=== PATIENT | female | born 1995 | race Caucasian/White ===

== ENCOUNTER 2018-10-29 20:00 | Inpatient (IN) | payer MEDICAID ==
[~2018-10-29] VITALS: Ht 157.5 cm; Wt 75.6 kg
[~2018-10-29 20:00] MED LIST: CEPH250C; FERR-31; NIFE10CA; PREN1TAB49
[2018-10-29 21:49] VITALS: BP 131/80; PULSE 84; RESP 18
[2018-10-29] MEDS ORDERED: ACET500C5 PO (21:53)
[2018-10-29] MEDS ORDERED: LACTATED RINGER'S 1,000 ML IV PRN (21:54)
[2018-10-29] MEDS ORDERED: MISOPROSTOL 200 MCG TAB PR PRN (22:00)
[2018-10-29] MEDS ORDERED: BUTORPHANOL 2 MG INJ IV PRN (22:00)
[2018-10-29] MEDS ORDERED: METHYLERGONOVINE 0.2 MG INJ IM PRN (22:00)
[2018-10-29] MEDS ORDERED: OXYTOCIN 30 UNITS/LR 500 ML IV SCH ×2 (22:00)
[2018-10-29] MEDS ORDERED: LIDOCAINE 1% (MPF) 30 ML INJ INJ PRN (22:00)
[2018-10-29] MEDS ORDERED: CARBOPROST 250 MCG INJ IM PRN (22:00)
[2018-10-29] MEDS ORDERED: IBUPROFEN 600 MG TAB PO PRN (22:00)
[2018-10-29] MEDS ORDERED: OXYTOCIN 30 UNITS/LR 500 ML IV PRN (22:00)
[2018-10-29] MEDS ORDERED: BUTORPHANOL 1 MG INJ IV PRN (22:00)
[2018-10-29 22:09] VITALS: Ht 157.5 cm; Wt 75.6 kg
[2018-10-29] MEDS: LACTATED RINGER'S 1,000 ML IV SCH (23:31)
[2018-10-30] MEDS: MISOPROSTOL 50 MCG CAPSULE PO PRN ×2 (00:11→04:20)
[2018-10-30] MEDS ORDERED: ACETAMINOPHEN 500 MG TAB PO PRN (03:00)
[2018-10-30] MEDS: LACTATED RINGER'S 1,000 ML IV SCH ×4 (07:20→23:46)
[2018-10-30] MEDS ORDERED: OXYTOCIN 30 UNITS/LR 500 ML IV SCH (09:00)
--- NOTE | 2018-10-30 21:06 | HP ---
Date/Time of Note Date/Time of Note DATE: 10/30/18 TIME: 21:01 OB - History Hx of Present Free Text/Dictation 23 YO with IUP at 38 weeks with EDC 11/13 2018 who reported to L&D for IOL due to IUGR. Care: Good Care Ultrasounds: Normal mid trimester US Obstetrical Complications: Growth Restriction Medical Complications: None Past Family/Social History * Past Medical, Surgical, Family and Obstetric Histories reviewed from chart. OB Admission Exam Vital Signs Vital Signs Vital Signs Date Temp Pulse Resp B/P (MAP) Pulse Ox O2 O2 Flow FiO2 Time Delivery Rate 10/29/18 98.9 84 18 131/80 Room Air 21:49 (97) Physical Exam HEENT: WNL Heart: Rhythm Normal Lungs: Clear, Equal Abdomen: WNL Extremities: Normal Reflexes: Normal Cervical Dilatation: 2cm Last 72 hours Lab Results CBC & BMP 10/29/18 22:36 OB Assessment/Plan Reason for admission: induction of labor Induction Method: per Pitocin Protocol JEFERSON CAST MD Oct 30, 2018 21:06
--- NOTE | 2018-10-30 22:43 | PREAC ---
Date/Time of Note Date/Time of Note DATE: 10/30/18 TIME: 22:42 Anesthesia Eval and Record Evaluation Time Pre-Procedure Interview DATE: 10/30/18 TIME: 22:42 Age 23 Sex female NPO: 8 hrs Preoperative diagnosis labor pain Planned procedure epidural Past Medical History Past Medical History: None Surgery & Anesthesia Issues No known issue Meds Anticoagulation: No Beta Tamir within 24 hr: No Reason Beta Tamir not given: Pt. not on B-Tamir Reported Medications Acetaminophen* (Tylophen*) 500 Mg Capsule, 500 MG PO Q6H PRN for PAIN AND/OR INFLAMMATION, TAB 10/29/18 Ferrous Sulfate (Iron Supplement) 1 Tab Tablet 06/23/10 Vits W-Ca,Fe,Fa(<1MG) () 1 Tab Tablet 06/23/10 Discontinued Reported Medications Nifedipine* (Procardia*) 10 Mg Capsule 06/23/10 Cephalexin* (Cephalexin*) 250 Mg Capsule 06/23/10 Current Medications Lactated Ringer's 1,000 ml @ 125 mls/hr Q8H IV Last administered on 10/30/18at 22:11; Admin Dose 125 MLS/HR; Start 10/29/18 at 21:54 Butorphanol Tartrate (Stadol) 1 mg Q2H PRN IV .PAIN; Start 10/29/18 at 22:00 Butorphanol Tartrate (Stadol) 2 mg Q2H PRN IV .PAIN; Start 10/29/18 at 22:00 Lidocaine (Xylocaine 1% (Mpf)) 30 ml ONCE PRN INJ .EPISIOTOMY; Start 10/29/18 at 22:00 Oxytocin/Lactated Ringer's 500 ml @ 500 mls/hr ONCE POST IV ; Start 10/29/18 at 22:00 Oxytocin/Lactated Ringer's 500 ml @ 125 mls/hr POST IV ; Start 10/29/18 at 22:00 Ibuprofen (Motrin) 600 mg ONCE PRN PO .PAIN 1-5; Start 10/29/18 at 22:00 Lactated Ringer's 1,000 ml @ 2,000 mls/hr Q30M PRN IV .ANESTHESIA; Start 10/29/18 at 21:54 Oxytocin/Lactated Ringer's 500 ml @ 0 mls/hr ONCE PRN IV .VAGINAL BLEEDING; Start 10/29/18 at 22:00 Methylergonovine Maleate (Methergine) 0.2 mg ONCE PRN IM .VAGINAL BLEEDING; Start 10/29/18 at 22:00 Carboprost Tromethamine (Hemabate) 250 mcg ONCE PRN IM .VAGINAL BLEEDING; Start 10/29/18 at 22:00 Misoprostol (Cytotec) 1,000 mcg ONCE PRN ID .VAGINAL BLEEDING; Start 10/29/18 at 22:00 Misoprostol (Cytotec 50 Mcg Capsule) 50 mcg Q4H PRN PO LABOR INDUCTION Last administered on 10/30/18at 04:20; Admin Dose 50 MCG; Start 10/29/18 at 23:30 Acetaminophen (Tylenol Tab) 500 mg Q4H PRN PO MILD PAIN(1-3)OR ELEVATED TEMP Last administered on 10/30/18at 03:01; Admin Dose 500 MG; Start 10/30/18 at 03:00 Oxytocin/Lactated Ringer's 500 ml @ 0 mls/hr Q0M IV Last administered on at 09:26; Admin Dose 1 MLS/HR; Start 10/30/18 at 09:00 Meds reviewed: Yes Allergies Coded Allergies: No Known Allergy (Verified , 10/29/18) Allergies Reviewed: Yes Labs/Studies Labs Reviewed: Reviewed by anesthesiologist Result Diagram: 10/29/182235 test: Positive Studies: ECG (n/a), CXR (n/a) Pre-procedure Exam Last vitals Vital Signs Date Temp Pulse Resp B/P (MAP) Pulse Ox O2 O2 Flow FiO2 Time Delivery Rate 10/29/18 98.9 84 18 131/80 Room Air 21:49 (97) Airway: Adequate mouth opening Mallampati: Mallampati I Teeth: Normal Lung: Normal Heart: Normal ASA Physical Status ASA physical status: 2 Emergency: None Planned Anesthetic Neuraxial: Epidural Pre-operative Attestations Prior to commencing anesthesia and surgery, the patient was re-evaluated, there was verification of: *The patient's identity *The results of appropriate recent lab work and preoperative vital signs *The above evaluation not changing prior to induction *Anesthetic plan, risk benefits, alternative and complications discussed with patient/family; questions answered; patient/family understands, accepts and wishes to proceed. AMBERLY SMITH MD Oct 30, 2018 22:43
[2018-10-30] MEDS ORDERED: FENTAnyl 2MCG/ML-ROPIV 0.2% 100 ML BAG EPI SCH (23:00)
[2018-10-30] MEDS ORDERED: NALOXONE (0.4 MG/ML) INJ IV PRN (23:00)
--- NOTE | 2018-10-30 23:32 | PAC ---
Date/Time of Note Date/Time of Note DATE: 10/30/18 TIME: 23:32 Post-Anesthesia Notes Post-Anesthesia Note Last documented vital signs Vital Signs Date Temp Pulse Resp B/P (MAP) Pulse Ox O2 O2 Flow FiO2 Time Delivery Rate 10/29/18 98.9 84 18 131/80 Room Air 23:49 (97) Activity: WNL Respiratory function: WNL Cardiovascular function: WNL Mental status: Baseline Pain reasonably controlled: Yes Hydration appropriate: Yes Nausea/Vomiting absent: No AMBERLY SMITH MD Oct 30, 2018 23:32
[2018-10-31] MEDS ORDERED: MINERAL OIL LIGHT 10 ML VIAL TOP ONE (02:30)
--- NOTE | 2018-10-31 04:07 | LDN ---
Date/Time of Note Date/Time of Note DATE: 10/31/18 TIME: 03:59 Delivery Summary at 37w6d induced for IUGR variable deceleration at complete,ARM clear fluid after portwine colored bleeding OP manual rotation to STEVE placenta complete andintact with marginal abruptio (very small area) of normal male with loose x1 nuchal cord with 8/9 5lb8oz Weeks of Gestation 38w1d Placenta Delivered: Spontaneously, Intact & Complete Meconium: none Episiotomy: No Perineal laceration: 0 Anesthesia type: Epidural Estimated blood loss: 100 Sponge & Needle done & correct: Yes All needle counts correct: Yes Any foreign bodies felt in the: No Infant Delivery Information Sex Sex: male Apgars 1 Minute: 8 5 Minute: 9 Suctioning Nose & mouth suctioned at chloé: Yes Delee suction performed: Yes Umbilical Cord Umbilical cord with: 3 Vessels Cord presentations: nuchal cord Nuchal cord present X: 1 Cord Blood was obtained: Yes Mother & Baby Disposition Disposition Mom & Baby to Maternity; Good: Yes Mom transferred to: Other Baby to NICU: No () TOÑO BARDALES MD Oct 31, 2018 04:07
[2018-10-31 06:00] VITALS: BP 118/79; PULSE 70; RESP 18
[2018-10-31] MEDS ORDERED: METHYLERGONOVINE 0.2 MG INJ IM PRN (06:00)
[2018-10-31] MEDS ORDERED: CARBOPROST 250 MCG INJ IM PRN (06:00)
[2018-10-31] MEDS ORDERED: WITCH HAZEL/GLYCERIN PAD PR PRN (06:00)
[2018-10-31] MEDS ORDERED: MISOPROSTOL 200 MCG TAB PR PRN (06:00)
[2018-10-31] MEDS ORDERED: OXYTOCIN 30 UNITS/LR 500 ML IV PRN (06:00)
[2018-10-31] MEDS ORDERED: OXYCODONE/ASPIRIN (4.88/325) TAB PO PRN ×2 (06:00)
[2018-10-31] MEDS ORDERED: BENZOCAINE 20% 56 ML SPRAY TOP PRN (06:00)
[2018-10-31] MEDS ORDERED: ZOLPIDEM 5 MG TAB PO PRN (06:00)
[2018-10-31] MEDS ORDERED: LANOLIN HPA 1 PKT TOP PRN (06:00)
[2018-10-31] MEDS: IBUPROFEN 600 MG TAB PO SCH ×4 (06:09→23:34)
[2018-10-31 07:40] VITALS: BP 120/79; PULSE 77; RESP 18
[2018-10-31] MEDS: SENNA/DOCUSATE NA (8.6MG/50MG) TAB PO SCH ×2 (11:12→21:11)
[2018-10-31 11:55] VITALS: BP 121/68; PULSE 74; RESP 18
[2018-10-31 12:00] VITALS: BP 121/68; PULSE 74; RESP 16
[2018-10-31 16:00] VITALS: BP 112/71; PULSE 75; RESP 20
[2018-10-31 20:00] VITALS: BP 117/78; PULSE 77; RESP 18
[2018-11-01] VITALS: BP 105/77; PULSE 72; RESP 18
[2018-11-01 04:04] VITALS: BP 118/79; PULSE 74; RESP 18
[2018-11-01] MEDS: IBUPROFEN 600 MG TAB PO SCH ×4 (05:42→23:58)
[2018-11-01 08:15] VITALS: BP 121/82; PULSE 88; RESP 18
[2018-11-01] MEDS: SENNA/DOCUSATE NA (8.6MG/50MG) TAB PO SCH ×2 (09:50→23:58)
[2018-11-01 16:00] VITALS: BP 117/83; PULSE 83; RESP 20
[2018-11-01 20:30] VITALS: BP 131/78; PULSE 106; RESP 18
[2018-11-02 01:00] VITALS: BP 120/61; PULSE 85; RESP 18
[2018-11-02 04:00] VITALS: BP 121/80; PULSE 64; RESP 19
[2018-11-02] MEDS: IBUPROFEN 600 MG TAB PO SCH ×2 (05:41→12:41)
[2018-11-02 08:20] VITALS: BP 119/83; PULSE 74; RESP 18
[2018-11-02] MEDS ORDERED: DIPHTH/TET/ACEL PERTUSS (ADULT) 0.5 ML VIAL IM* ONE (09:00)
[2018-11-02] MEDS: SENNA/DOCUSATE NA (8.6MG/50MG) TAB PO SCH (09:11)
--- NOTE | 2018-11-02 09:34 | PD.PPDC ---
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
--- NOTE | 2018-11-02 09:36 | DS ---
Date/Time of Note Date/Time of Note DATE: 11/02/18 TIME: 09:35 Obstetrical Discharge Record Final Diagnosis Final Diagnosis: Term delivered Vaginal Delivery Obstetrical Delivery: Spontaneous Complications Augmentation: Yes Induction: Yes Condition on Discharge Physical Assessment Last Vitals: T=98.9 BP 121/80 Voiding: Yes Bowel Movement: Yes Breast: Filling Fundus: Firm Calf Tenderness: No Patient Condition: Good ARACELIS FLANNERY MD Nov 02, 2018 09:36
--- NOTE | 2018-11-02 19:29 | QN ---
Documentation Comment This note is a late entry for 11/01/2018 day #1 Status post Patient stable and afebrile Tolerating regular diet and ambulating and voiding without any difficulties Vital signs stable VS - Last 72 Hours, by Label Date Temp Pulse Resp B/P (MAP) Pulse Ox O2 O2 Flow FiO2 Time Delivery Rate 11/02/18 97.5 74 18 119/83 Room Air 08:20 (95) 11/02/18 98.9 64 19 121/80 Room Air 04:00 (94) 11/02/18 01:00 11/01/18 99.4 106 18 131/78 Room Air 20:30 (95) 11/01/18 98.1 83 20 117/83 Room Air 16:00 (94) 11/01/18 97.8 88 18 121/82 Room Air 08:15 (95) 11/01/18 98.5 74 18 118/79 Room Air 04:04 (92) 11/01/18 98.0 72 18 105/77 Room Air 00:00 (86) 10/31/18 98.2 77 18 117/78 Room Air 20:00 (91) 10/31/18 97.9 75 20 112/71 Room Air 16:00 (85) 10/31/18 98.0 74 16 121/68 Room Air 12:00 (85) 10/31/18 98.0 74 18 121/68 Room Air 11:55 (85) 10/31/18 97.9 77 18 120/79 Room Air 07:40 (93) 10/31/18 98.0 70 18 118/79 Room Air 06:00 (92) Hematology - 72 Hrs Test 11/01/18 06:42 11/02/18 07:35 Hematocrit 25.2 % (37.0-47.0) L 25.7 % (37.0-47.0) L Hemoglobin 7.9 g/dl (12.0-16.0) L 8.1 g/dl (12.0-16.0) L Mean Corpuscular 24.9 pg (29.0-33.0) L 25.4 pg (29.0-33.0) L Hemoglobin Mean Corpuscular 31.3 g/dl (32.0-37.0) L 31.5 g/dl (32.0-37.0) L Hemoglobin Concent Mean Corpuscular Volume 79.5 fl (82.0-101.0) L 80.6 fl (82.0-101.0) L Mean Platelet Volume 12.0 fl (7.4-10.4) H 12.7 fl (7.4-10.4) H Platelet Count 192 10^3/UL (140-415) 198 10^3/UL (140-415) Red Blood Count 3.17 10^6/ul (4.20-5.40) 3.19 10^6/ul (4.20-5.40) L L Red Cell Distribution 14.6 % (11.5-14.5) H 14.6 % (11.5-14.5) H Width White Blood Count 9.1 10^3/ul (4.8-10.8) 7.8 10^3/ul (4.8-10.8) Abdomen soft, fundus firm Perineum intact Extremities nontender Assessment and plan; Patient stable and doing well continue with routine care KAMALA LEDESMA MD Nov 02, 2018 19:29
--- NOTE | 2018-11-03 17:29 | DELSUM ---
Delivery Summary A-C Datetime Report Generated by CPN: 11/03/2018 17:29 DELIVERY PERSONNEL Clinical Fellow: Fistell, Gerson MATERNAL INFORMATION Delivery Anesthesia: Epidural Medications in Delivery: PITOCIN 30 UNITS IN 500 ML L/R INJ IV BOLUS RATE AFTERT DELIVERY Delivery QBL (ml): 75 Placenta Cultured: No Maternal Complications: Other RN Comments: [id number] IUGR LABOR SUMMARY EDC: 11/13/2018 00:00 No. Babies in Womb: 1 Attempted: No Labor Anesthesia: Epidural LABOR INFORMATION Reason for Induction: IUGR Onset of Labor: 10/30/2018 08:00 Complete Dilatation: 10/31/2018 03:23 Cervical Ripening Agents: Cytotec @ Oxytocin: Induction Group B Beta Strep: Negative Antibiotics # of Doses: 0 Steroids Given: None Reason Steroids Not Administered: Not Applicable MEMBRANES Membranes Rupture Method: Spontaneous Rupture of Membranes: 10/30/2018 21:20 Length of Rupture (hr): 6.33 Amniotic Fluid Color: Bloody Amniotic Fluid Amount: Moderate Amniotic Fluid Odor: None STAGES OF LABOR Stage 1 hr: 19 Stage 1 min: 23 Stage 2 hr: 0 Stage 2 min: 17 Stage 3 hr: 0 Stage 3 min: 5 Total Time in Labor hr: 19 Total Time in Labor min: 45 VAGINAL DELIVERY Episiotomy: None Laceration Extension: N/A Laceration Type: None Laceration Repair: Not Applicable Initial Vag Sponge Count: 10 Final Vag Sponge Count: 10 Initial Vag Sharps Count: 1 Final Vag Sharps Count: 1 Sponge Count Correct: Yes Sharps Count Correct: Yes BABY A INFORMATION Infant Delivery Date/Time: 10/31/2018 03:40 Method of Delivery: Vaginal Born in Route : No : N/A Forceps: N/A Vacuum Extraction: N/A Shoulder Dystocia : N/A SHOULDER DYSTOCIA BABY A Infant Delivery Date/Time: 10/31/2018 03:40 PRESENTATION/POSITION BABY A Presentation: Cephalic Cephalic Presentation: Vertex Vertex Position: Right Occipital Posterior Breech Presentation: N/A PLACENTA INFORMATION BABY A Placenta Delivery Time : 10/31/2018 03:45 Placenta Method of Delivery: Spontaneous Placenta Status: Delivered SCORES BABY A Heart Rate 1 min: >100 bpm Resp Effort 1 min: Good Cry Reflex Irritability 1 min: Cough/Sneeze/Pulls Away Muscle Tone 1 min: Active Motion Color 1 min: Blue/Pale Resuscitation Effort 1 min: Tactile Stimulation SCORE 1 MIN: 8 Heart Rate 5 min: >100 bpm Resp Effort 5 min: Good Cry Reflex Irritability 5 min: Cough/Sneeze/Pulls Away Muscle Tone 5 min: Active Motion Color 5 min: Body [place], Extremit Blue Resuscitation Effort 5 min: N/A SCORE 5 MIN: 9 INFANT INFORMATION BABY A Gestational Age at Delivery: 38.1 Gestational Status: Early Term- 37- 38.6 Weeks Outcome : Liveborn Condition : Stable Sex: Male IDENTIFICATION/MEDS BABY A ID Band Number: [id number] ID Band Location: Right Leg; Left Arm Sensor Applied: Yes Sensor Number: [id number] Sensor Location : Cord Clamp Vitamin K Given : Not Given Erythromycin Given: Not Given WEIGHT/LENGTH BABY A Infant Birthweight (gm): 2490 Infant Weight (lb): 5 Weight (oz): 8 Infant Length (in): 18.00 Infant Length (cm): 45.72 CORD INFORMATION BABY A No. Cord Vessels: 3 Nuchal Cord : Around Neck x1, Loose Cord Blood Taken: Yes Suction: Mouth; Nose ASSESSMENT BABY A Infant Complications: None Physical Findings at Delivery: Within Normal Limits Respirations: Appears Normal Industrial Hygienist/ALS Called : No Care By: PETTY GREENBERG RN Transferred To: Remains with Mother
--- NOTE | 2018-11-03 17:30 | DELSUM ---
Delivery Summary A-C Datetime Report Generated by CPN: 11/03/2018 17:30 DELIVERY PERSONNEL Sr Account Executive: Fistell, Gerson MATERNAL INFORMATION Delivery Anesthesia: Epidural Medications in Delivery: PITOCIN 30 UNITS IN 500 ML L/R INJ IV BOLUS RATE AFTERT DELIVERY Delivery QBL (ml): 75 Placenta Cultured: No Maternal Complications: Other RN Comments: [id number] IUGR LABOR SUMMARY EDC: 11/13/2018 00:00 No. Babies in Womb: 1 Attempted: No Labor Anesthesia: Epidural LABOR INFORMATION Reason for Induction: IUGR Onset of Labor: 10/30/2018 08:00 Complete Dilatation: 10/31/2018 03:23 Cervical Ripening Agents: Cytotec @ Oxytocin: Induction Group B Beta Strep: Negative Antibiotics # of Doses: 0 Steroids Given: None Reason Steroids Not Administered: Not Applicable MEMBRANES Membranes Rupture Method: Spontaneous Rupture of Membranes: 10/30/2018 21:20 Length of Rupture (hr): 6.33 Amniotic Fluid Color: Bloody Amniotic Fluid Amount: Moderate Amniotic Fluid Odor: None STAGES OF LABOR Stage 1 hr: 19 Stage 1 min: 23 Stage 2 hr: 0 Stage 2 min: 17 Stage 3 hr: 0 Stage 3 min: 5 Total Time in Labor hr: 19 Total Time in Labor min: 45 VAGINAL DELIVERY Episiotomy: None Laceration Extension: N/A Laceration Type: None Laceration Repair: Not Applicable Initial Vag Sponge Count: 10 Final Vag Sponge Count: 10 Initial Vag Sharps Count: 1 Final Vag Sharps Count: 1 Sponge Count Correct: Yes Sharps Count Correct: Yes BABY A INFORMATION Infant Delivery Date/Time: 10/31/2018 03:40 Method of Delivery: Vaginal Born in Route : No : N/A Forceps: N/A Vacuum Extraction: N/A Shoulder Dystocia : N/A SHOULDER DYSTOCIA BABY A Infant Delivery Date/Time: 10/31/2018 03:40 PRESENTATION/POSITION BABY A Presentation: Cephalic Cephalic Presentation: Vertex Vertex Position: Right Occipital Posterior Breech Presentation: N/A PLACENTA INFORMATION BABY A Placenta Delivery Time : 10/31/2018 03:45 Placenta Method of Delivery: Spontaneous Placenta Status: Delivered SCORES BABY A Heart Rate 1 min: >100 bpm Resp Effort 1 min: Good Cry Reflex Irritability 1 min: Cough/Sneeze/Pulls Away Muscle Tone 1 min: Active Motion Color 1 min: Blue/Pale Resuscitation Effort 1 min: Tactile Stimulation SCORE 1 MIN: 8 Heart Rate 5 min: >100 bpm Resp Effort 5 min: Good Cry Reflex Irritability 5 min: Cough/Sneeze/Pulls Away Muscle Tone 5 min: Active Motion Color 5 min: Body [place], Extremit Blue Resuscitation Effort 5 min: N/A SCORE 5 MIN: 9 INFANT INFORMATION BABY A Gestational Age at Delivery: 38.1 Gestational Status: Early Term- 37- 38.6 Weeks Outcome : Liveborn Condition : Stable Sex: Male IDENTIFICATION/MEDS BABY A ID Band Number: [id number] ID Band Location: Right Leg; Left Arm Sensor Applied: Yes Sensor Number: [id number] Sensor Location : Cord Clamp Vitamin K Given : Not Given Erythromycin Given: Not Given WEIGHT/LENGTH BABY A Infant Birthweight (gm): 2490 Infant Weight (lb): 5 Weight (oz): 8 Infant Length (in): 18.00 Infant Length (cm): 45.72 CORD INFORMATION BABY A No. Cord Vessels: 3 Nuchal Cord : Around Neck x1, Loose Cord Blood Taken: Yes Suction: Mouth; Nose ASSESSMENT BABY A Infant Complications: None Physical Findings at Delivery: Within Normal Limits Respirations: Appears Normal Referral Clerk/ALS Called : No Care By: PETTY GREENBERG RN Transferred To: Remains with Mother
== END 2018-11-02 16:05 | disposition home or self-care (01) | DRG 807 ==
LOC: L-D 20:50 → PP1 10-31 05:58
PROVIDERS: ADMIT Specialist; ATTEND Specialist
PROC: 10D07Z7 Extraction of Products of Conception, Internal Version, Via Natural or Artificial Opening (ICD-10-PCS; principal; 2018-10-31)
PROC: 3E033VJ Introduction of Other Hormone into Peripheral Vein, Percutaneous Approach (ICD-10-PCS; 2018-10-31)
DX: O32.8XX0 Maternal care for other malpresentation of fetus, not applicable or unspecified (principal); O36.5930 Maternal care for other known or suspected poor fetal growth, third trimester, not applicable or unspecified; O76 Abnormality in fetal heart rate and rhythm complicating labor and delivery; O69.81X0 Labor and delivery complicated by cord around neck, without compression, not applicable or unspecified; Z37.0 Single live birth; Z3A.37 37 weeks gestation of pregnancy
CPT/HCPCS: 62319; 76815; 76818; 85025; 85610; 85730; 86592; 86850; 86900; 86901; 87340; 88307; J2590; J3010; J7120